=== PATIENT | male | born 1975 | race Caucasian/White ===

== ENCOUNTER → 2017-05-05 | Day surgery (SDC) | payer OTHER | END | disposition home or self-care (01) | LOC: SDC 06:57 | DX: N20.0 Calculus of kidney (principal); I10 Essential (primary) hypertension; K21.9 Gastro-esophageal reflux disease without esophagitis; R73.03 Prediabetes; Z91.012 Allergy to eggs | CPT/HCPCS: C1758; C2617; J2704; Q9967 ==